=== PATIENT | male | born 1950 | race Caucasian/White ===

== ENCOUNTER 2018-10-02 09:28 | Emergency (ER) | payer MEDICARE ==
[~2018-10-02] VITALS: Ht 175.2 cm; Wt 94.3 kg
[2018-10-02] MEDS ORDERED: DELTASONE20 M1 PO (10:03)
[2018-10-02] MEDS ORDERED: VALTREX1000 MG PO (10:03)
[2018-10-02] MEDS ORDERED: ARTIFICIAL TEAR30 M4 OP (10:03)
[2018-10-02] MEDS ORDERED: SOOTHE LUBRICA1 EACH OP (10:03)
[2018-10-02 10:22] LABS: ALBUMIN 3.3 gm/dl (3.1-4.5); ALKALINE PHOSPHATASE 150 U/L (45-117); BUN 12 mg/dl (7-24); CHLORIDE 105 mmol/L (98-107); CREATININE 1.01 mg/dL (0.70-1.30); POTASSIUM 4.5 mmol/L (3.5-5.1); SGOT/AST 108 IU/L (3-35); SGPT/ALT 136 U/L (12-78); SODIUM 140 mmol/L (136-145); TOTAL PROTEIN 7.8 gm/dL (6.4-8.2)
[2018-10-11 00:04] LABS: IGG P18 AB Present (.); IGG P23 AB Present (.); IGG P28 AB Absent (.); IGG P30 AB Absent (.); IGG P39 AB Absent (.); IGG P41 AB Present (.); IGG P45 AB Present (.); IGG P58 AB Absent (.); IGG P63 AB Present (.); IGG P66 AB Absent (.); IGM P23 AB Present (.); IGM P39 AB Present (.); IGM P41 AB Present (.); LYME IGG WB INTERPRETATION Positive (.); LYME IGM WB INTERPRETATION Positive (.)
== END 2018-10-02 10:50 | disposition home or self-care (01) ==
LOC: ED 09:28
PROVIDERS: Emergency Medicine
DX: G51.0 Bell's palsy (principal); R74.0 Nonspecific elevation of levels of transaminase and lactic acid dehydrogenase [LDH]; Z88.7 Allergy status to serum and vaccine

== ENCOUNTER → 2018-11-07 | Outpatient (CLI) | payer MEDICARE ==
[~2018-11-07] MED LIST: ARTIFICIAL TEAR30 M4 OP; DELTASONE20 M1 PO; SOOTHE LUBRICA1 EACH OP; VALTREX1000 MG PO
== END | disposition home or self-care (01) ==
LOC: US 00:55
DX: R47.89 Other speech disturbances (principal); Q67.4 Other congenital deformities of skull, face and jaw; K76.9 Liver disease, unspecified; R79.89 Other specified abnormal findings of blood chemistry; I10 Essential (primary) hypertension